=== PATIENT | male | born 2000 | race African-American/Black ===

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

== ENCOUNTER 2022-09-21 13:32 | Emergency (ER) | payer OTHER, SELFPAY | END 2022-09-21 15:33 | disposition home or self-care (01) | LOC: ERS 13:32 | DX: M25.562 Pain in left knee (principal); M25.572 Pain in left ankle and joints of left foot; Y93.67 Activity, basketball ==